=== PATIENT | male | born 1995 | race American Indian/Alaskan Native ===

== ENCOUNTER 2018-05-20 12:21 | Emergency (ER) | payer MEDICAID, OTHER ==
[2018-05-20 12:59] VITALS: RESP 18; TEMP 98.7; O2SAT 99
[2018-05-20] MEDS ORDERED: cefTRIAXone (Rocephin) 250 mg Inj IM STA (13:54)
--- NOTE | 2018-05-20 13:57 | ED PDOC ---
Arrival/HPI - General Chief Complaint: Male Genitourinary Time Seen by Provider: 05/20/18 13:53 Historian: Patient - History of Present Illness Narrative History of Present Illness (Text): 05/20/18 14:13 22 year old male, with nos significant past medical history, presents to the Emergency department complaining of penile discharge since 1 days. Patient informs having unprotected sexual intercourse recently. Patient denies any other associated somatic complaints. Patient denies any fevers, chills, headache, dizziness, chest pain, shortness of breath, cough, abdominal pain, nausea, vomiting, diarrhea, back pain, neck pain, or any other complaints. Time/Duration: 24 hours Symptom Onset: Gradual Symptom Course: Unchanged Activities at Onset: Light Context: Home Past Medical History - Provider Review Nursing Documentation Reviewed: Yes - Infectious Disease Hx of Infectious Diseases: None - Psychiatric Hx Substance Use: No - Anesthesia Hx Anesthesia: No Family/Social History - Physician Review Nursing Documentation Reviewed: Yes Family/Social History: Unknown Family HX Smoking Status: Heavy Smoker > 10 Cigarettes Daily Hx Alcohol Use: No Hx Substance Use: No Allergies/Home Meds Allergies/Adverse Reactions: Allergies No Known Allergies Allergy (Verified 05/20/18 13:54) Review of Systems - Physician Review All systems were reviewed & negative as marked: Yes - Review of Systems Constitutional: absent: Fevers Gastrointestinal: absent: Abdominal Pain Genitourinary Male: Other (penile discharge). absent: Dysuria Physical Exam - Physical Exam Narrative Physical Exam (Text): 05/20/18 14:10 Constitutional: No acute distress. Head: Normocephalic. Atraumatic. Eyes: PERRL. ENT: Moist mucous membranes. Neck: Supple. Cardiovascular: Regular rate. Chest: No tenderness. Respiratory: Clear to auscultation bilaterally. GI: Soft. Nontender. Nondistended. Genitourinary: Thin, clear discharge from urethra. No erythema or tenderness or edema. No testicular tenderness. No penile lesions. No inguinal adenopathy. Back: No CVA tenderness. Musculoskeletal: No tenderness or swelling of extremities. Skin: No rash. Neurologic: Alert, no focal deficit. Vital Signs Reviewed: Yes Vital Signs Temp Pulse Resp BP Pulse Ox 05/20/18 12:55 98.7 F 90 18 132/86 99 Temperature: Afebrile Blood Pressure: Normal Pulse: Regular Respiratory Rate: Normal Appearance: Positive for: Well-Appearing, Non-Toxic, Comfortable Pain Distress: None Mental Status: Positive for: Alert and Oriented X 3 Medical Decision Making ED Course and Treatment: 05/20/18 14:11 Impression: 22 year old male presents to the ED complaining of penile discharge. Plan: -- Zithromax -- Rocephine -- Reassess and disposition Prior Visits: Notes and results from previous visits were reviewed. Progress Notes: 05/20/18 14:11 Empiric antibiotics administered. Advised patient to seek follow up for full battery of STD testing. - Scribe Statement The provider has reviewed the documentation as recorded by the Scribe Sharon Xiong. All medical record entries made by the Scribe were at my direction and personally dictated by me. I have reviewed the chart and agree that the record accurately reflects my personal performance of the history, physical exam, medical decision making, and the department course for this patient. I have also personally directed, reviewed, and agree with the discharge instructions and disposition. Disposition/Present on Arrival - Present on Arrival Any Indicators Present on Arrival: No History of DVT/PE: No History of Uncontrolled Diabetes: No Urinary Catheter: No History of Decub. Ulcer: No History Surgical Site Infection Following: None - Disposition Have Diagnosis and Disposition been Completed?: Yes Diagnosis: Penile discharge Disposition: HOME/ ROUTINE Disposition Time: 13:56 Patient Plan: Discharge Condition: STABLE Discharge Instructions (ExitCare): Urethritis Referrals: Ade Del Rosario MD [Medical Doctor] - Follow up with primary Forms: [email or web address] ([place])
[2018-05-20 14:39] VITALS: BP 121/77; PULSE 88
== END 2018-05-20 14:41 | disposition home or self-care (01) ==
LOC: ED 12:21 → MERGE 12:21 → ED 14:41
DX: R36.9 Urethral discharge, unspecified (principal); F17.210 Nicotine dependence, cigarettes, uncomplicated
CPT/HCPCS: 96372; 99281; J0696